=== PATIENT | male | born 1945 | race Caucasian/White ===

== ENCOUNTER 2020-06-27 18:17 | Inpatient (IN) | payer MEDICARE, OTHER ==
[~2020-06-27] VITALS: Ht 170.2 cm; Wt 80.3 kg
[~2020-06-27 18:17] MED LIST: ASPI-630 PO; METO50TA6 PO
[2020-06-27 18:44] LABS: BASO # 0.1 x10^3/uL (0.0-0.2); BASO % 1 % (0-3); EOS # 0.2 x10^3/uL (0.0-0.7); EOS % 2 % (0-3); HEMATOCRIT 41.5 % (39.0-53.0); HEMOGLOBIN 14.3 g/dL (13.0-17.5); LYMPH % 41 % (24-48); MEAN CORPUSCULAR HEMOGLOBIN 34 pg (25-35); MEAN CORPUSCULAR HGB CONC 34 g/dL (31-37); MEAN CORPUSCULAR VOLUME 99 fL (79-100); MONO # 1.4 x10^3/uL (0.0-1.1); MONO % 14 % (0-9); NEUT # 3.9 x10^3/uL (1.8-7.7); NEUT % 41 % (31-73); PLATELET COUNT 225 x10^3/uL (140-400); WHITE BLOOD COUNT 9.6 x10^3/uL (4.0-11.0)
[2020-06-27] MEDS ORDERED: NITROGLYCERIN PREMIX 250 ML IV ONE (18:45)
[2020-06-27] MEDS ORDERED: IV NORMAL SALINE 1000ML BAG 1,000 ML IV ONE (18:45)
[2020-06-27] MEDS ORDERED: MORPHINE SULFATE 4 MG/ML VIAL. IV ONE (18:45)
[2020-06-27 18:54] LABS: PROTHROMBIN TIME PATIENT 13.7 SEC (11.7-14.0)
--- NOTE | 2020-06-27 19:30 | RAD ---
EXAMINATION: CT HEAD/BRAIN WO (CT HEAD WITHOUT IV CONTRAST) CLINICAL HISTORY: Syncope, head injury TECHNIQUE: Serial axial images without IV contrast were obtained from the vertex to the foramen magnu m. CT Dose Reduction Employed: One or more of the following individualized dose reduction techniques wer e utilized for this examination: 1. Automated exposure control 2. Adjustment of the mA and/or kV ac cording to patient size 3. Use of iterative reconstruction technique. COMPARISON: None FINDINGS: Post-operative Change: None. Acute Change: No evidence of an acute infarct or other acute parenchymal process. Hemorrhage: No evidence of acute intracranial hemorrhage. Mass Lesion/Mass Effect: No evidence of intracranial mass or extraaxial fluid collection. No signific ant mass effect. Chronic Change: Scattered patchy foci of hypoattenuation in the supratentorial white matter, asymmetr ically prominent adjacent to the frontal and temporal horns of the left lateral ventricle. This is no nspecific but likely represents mild microvascular ischemia. Atherosclerotic calcification of the kerry ateral carotid siphons. Parenchyma: Mild generalized volume loss. Parenchyma otherwise within normal limits for age. Ventricles: Ventricular enlargement concordant with degree of parenchymal volume loss. Paranasal Sinuses and Skull Base: Visualized paranasal sinuses clear. Visualized skull base and soft tissues unremarkable. IMPRESSION: No evidence of acute intracranial abnormality. Mild chronic white matter microvascular ischemic changes. Electronically signed by: Javi Thakkar DO (06/27/2020 7:27 PM) [facility]
[2020-06-27 19:32] LABS: CALCIUM 8.5 mg/dL (8.5-10.1); CREATININE 1.7 mg/dL (0.7-1.3); GFR 39.6; POTASSIUM 4.4 mmol/L (3.5-5.1)
--- NOTE | 2020-06-27 19:35 | PHYS DOC ---
Past Medical History Past Medical History: Heart Disease, Hypertension Past Surgical History: Cholecystectomy, Coronary Bypass Surgery, Other Additional Past Surgical Histo: L KNEE, R ANKLE FX REPAIR 1994, BILAT CARPAL TUNNEL, MULTIPLE SKIN CA Smoking Status: Never Smoker Alcohol Use: None General Adult EDM: Chief Complaint: CHEST PAIN HPI: HPI: Patient is a 75 year [id number]-ekt male past medical history of coronary artery disease s/p cabg presents for evaluation after syncopal episode. Patient states he was at the gas station when he suddenly had a syncopal episode. Patient denies any preceding symptoms. Patient states upon awakening he had some left-sided chest discomfort. Patient pain was constant but worse with deep breaths. Patient states pain was initially a 7 out of 10. On upon arrival to a 3 out of 10. EMS treated patient with aspirin and nitroglycerin. Patient also has abrasion laceration to the left posterior scalp. EMS EKG showed ST abnormalities in V2 V3--which completely resolved on ER ekg. Review of Systems: Review of Systems: Constitutional: Denies fever or chills. [] Eyes: Denies change in visual acuity. [] HENT: Denies nasal congestion or sore throat. [] Respiratory: Denies cough positive shortness of breath. [] Cardiovascular: Positive chest pain GI: Denies abdominal pain, nausea, vomiting, bloody stools or diarrhea. [] : Denies dysuria. [] Musculoskeletal: Denies back pain or joint pain. [] Integument: Denies rash. [] Neurologic: Denies headache, focal weakness or sensory changes. [] Endocrine: Denies polyuria or polydipsia. [] Lymphatic: Denies swollen glands. [] Psychiatric: Denies depression or anxiety. [] Heart Score: HEART Score for Chest Pain: HEART Score for Chest Pain Response (Comments) Value History Highly Suspicious 2 ECG Nonspecific Repolarizatio 1 Age > 65 2 Risk Factors >3 Risk Factors or Hx CAD 2 Total 7 Risk Factors: Risk Factors: DM, Current or recent (<one month) smoker, HTN, HLP, family history of CAD, obesity. Risk Scores: Score 0 - 3: 2.5% MACE over next 6 weeks - Discharge Home Score 4 - 6: 20.3% MACE over next 6 weeks - Admit for Clinical Observation Score 7 - 10: 72.7% MACE over next 6 weeks - Early Invasive Strategies Current Medications: Current Medications Medications (Trade) Dose Ordered Sig/Guillermo Start Time Stop Time Status Last Admin Dose Admin Morphine Sulfate (Morphine Sulfate) 4 mg 1X ONCE 06/27/20 18:45 06/27/20 18:46 DC 06/27/20 19:03 4 MG Nitroglycerin/ Dextrose 250 ml @ 0 mls/hr 1X ONCE 06/27/20 18:45 06/27/20 18:46 DC 06/27/20 19:28 1.5 MLS/HR Sodium Chloride 1,000 ml @ 1,000 mls/hr 1X ONCE 06/27/20 18:45 06/27/20 19:44 06/27/20 19:13 1,000 MLS/HR Allergies: Allergies: Allergies Coded Allergies Type Severity Reaction Last Updated Verified No Known Drug Allergies 10/21/14 No Physical Exam: PE: Constitutional: Well developed, well nourished, no acute distress, non-toxic appearance. [] HENT: Normocephalic, atraumatic, bilateral external ears normal, oropharynx moist, no oral exudates, nose normal. [] Eyes: PERRLA, EOMI, conjunctiva normal, no discharge. [] Neck: Normal range of motion, no tenderness, supple, no stridor. [] Cardiovascular:Heart rate regular rhythm, no murmur [] Lungs & Thorax: Bilateral breath sounds clear to auscultation [] Abdomen: Bowel sounds normal, soft, no tenderness, no masses, no pulsatile masses. [] Skin: Warm, dry, no erythema, no rash. [] Back: No tenderness, no CVA tenderness. [] Extremities: No tenderness, no cyanosis, no clubbing, ROM intact, no edema. [] Neurologic: Alert and oriented X 3, normal motor function, normal sensory function, no focal deficits noted. [] Psychologic: Affect normal, judgement normal, mood normal. [] Current Patient Data: Labs: Laboratory Tests Test 06/27/20 18:07 06/27/20 19:10 White Blood Count 9.6 x10^3/uL (4.0-11.0) Red Blood Count 4.20 x10^6/uL (4.30-5.70) L Hemoglobin 14.3 g/dL (13.0-17.5) Hematocrit 41.5 % (39.0-53.0) Mean Corpuscular Volume 99 fL (79-100) Mean Corpuscular Hemoglobin 34 pg (25-35) Mean Corpuscular Hemoglobin Concent 34 g/dL (31-37) Red Cell Distribution Width 14.0 % (11.5-14.5) Platelet Count 225 x10^3/uL (140-400) Neutrophils (%) (Auto) 41 % (31-73) Lymphocytes (%) (Auto) 41 % (24-48) Monocytes (%) (Auto) 14 % (0-9) H Eosinophils (%) (Auto) 2 % (0-3) Basophils (%) (Auto) 1 % (0-3) Neutrophils # (Auto) 3.9 x10^3/uL (1.8-7.7) Lymphocytes # (Auto) 4.0 x10^3/uL (1.0-4.8) Monocytes # (Auto) 1.4 x10^3/uL (0.0-1.1) H Eosinophils # (Auto) 0.2 x10^3/uL (0.0-0.7) Basophils # (Auto) 0.1 x10^3/uL (0.0-0.2) Prothrombin Time 13.7 SEC (11.7-14.0) Prothrombin Time INR 1.1 (0.8-1.1) Activated Partial Thromboplast Time 28 SEC (24-38) Sodium Level 138 mmol/L (136-145) Potassium Level 4.4 mmol/L (3.5-5.1) Chloride Level 106 mmol/L (98-107) Carbon Dioxide Level 26 mmol/L (21-32) Anion Gap 6 (6-14) Blood Urea Nitrogen 27 mg/dL (8-26) H Creatinine 1.7 mg/dL (0.7-1.3) H Estimated GFR (Cockcroft-Gault) 39.6 BUN/Creatinine Ratio 16 (6-20) Glucose Level 99 mg/dL (70-99) Calcium Level 8.5 mg/dL (8.5-10.1) Total Bilirubin Pending Aspartate Amino Transferase (AST) Pending Alanine Aminotransferase (ALT) Pending Alkaline Phosphatase Pending Total Protein Pending Albumin Pending Albumin/Globulin Ratio Pending Laboratory Tests 06/27/20 18:07 Laboratory Tests 06/27/20 19:10 Vital Signs: Vital Signs Date Time Temp Pulse Resp B/P (MAP) Pulse Ox O2 Delivery O2 Flow Rate FiO2 06/27/20 18:18 98.2 64 18 145/62 (89) 98 Room Air 98.2 EKG: EKG: Heart rate 66 taken at [address] elevation no acute GA [] Radiology/Procedures: Radiology/Procedures: []FINDINGS: Post-operative Change: None. Acute Change: No evidence of an acute infarct or other acute parenchymal process. Hemorrhage: No evidence of acute intracranial hemorrhage. Mass Lesion/Mass Effect: No evidence of intracranial mass or extraaxial fluid collection. No significant mass effect. Chronic Change: Scattered patchy foci of hypoattenuation in the supratentorial white matter, asymmetrically prominent adjacent to the frontal and temporal horns of the left lateral ventricle. This is nonspecific but likely represents mild microvascular ischemia. Atherosclerotic calcification of the bilateral carotid siphons. Parenchyma: Mild generalized volume loss. Parenchyma otherwise within normal limits for age. Ventricles: Ventricular enlargement concordant with degree of parenchymal volume loss. Paranasal Sinuses and Skull Base: Visualized paranasal sinuses clear. Visualized skull base and soft tissues unremarkable. IMPRESSION: No evidence of acute intracranial abnormality. Mild chronic white matter microvascular ischemic changes. Electronically signed by: Javi Thakkar DO (06/27/2020 7:27 PM) [facility] Course & Med Decision Making: Course & Med Decision Making Pertinent Labs and Imaging studies reviewed. (See chart for details) [] Patient was evaluated for chief complaint. Work-up consisted of laboratory analysis and radiologic imaging and ekg. Results reviewed and discussed with patient Patient received aspirin prior to arrival. I decided to start patient on nitro drip for his pain. He received morphine and IV fluids. Initial troponin slightly elevated but within normal limits. Despite patients intial tropoin I suspect NSTEMI. Patient admitted to hospitalist with cardiology consult. J Luis Disclaimer: J Luis Disclaimer: This electronic medical record was generated, in whole or in part, using a voice recognition dictation system. Departure Departure Impression: Primary Impression: Chest pain Additional Impression: Syncope Disposition: 09 ADMITTED INPT THIS HOSP Admitting Physician: NIDIA Condition: STABLE Referrals: UNKNOWN PCP NAME (PCP) NOEL KING DO Jun 27, 2020 19:35
[2020-06-27 19:37] LABS: ALBUMIN 2.9 g/dL (3.4-5.0); ALBUMIN/GLOBULIN RATIO 0.7 (1.0-1.7); TOTAL BILIRUBIN 0.5 mg/dL (0.2-1.0); TOTAL PROTEIN 7.1 g/dL (6.4-8.2)
[2020-06-27 20:40] VITALS: BP 142/60
--- NOTE | 2020-06-27 20:41 | RAD ---
EXAMINATION: XR CHEST 1V CLINICAL HISTORY: Chest pain EXAM DATE/TIME: 06/27/2020 7:48 PM COMPARISON: None FINDINGS: Lines, Tubes, and Devices: None. Cardiomediastinal Silhouette: Normal heart size. Aortic atherosclerotic calcification. Lungs and Pleura: Pulmonary hypoexpansion with nonspecific mild diffuse interstitial prominence. No e vidence of focal airspace consolidation or pleural effusion. Bones and Soft Tissues: Median sternotomy wires and paramediastinal surgical clips. IMPRESSION: No evidence of acute cardiopulmonary abnormality. Electronically signed by: Javi Thakkar DO (06/27/2020 8:38 PM) [facility]
[2020-06-27] MEDS ORDERED: ONDANSETRON PF 4 MG/2 ML VIAL. IV PRN ×2 (21:00→22:30)
[2020-06-27] MEDS ORDERED: MORPHINE SULFATE 4 MG/ML VIAL. IV PRN (21:00)
[2020-06-27] MEDS ORDERED: NITROGLYCERIN SUBLINGUAL 0.4 MG BOTTLE OF 25. SL PRN (22:30)
[2020-06-27 22:50] VITALS: BP 150/66
[2020-06-27] MEDS: HEPARIN for SUB-Q USE 5,000 UNIT/ML VIAL. SQ SCH (22:54)
[2020-06-27] MEDS: METOPROLOL TART IMMED RELEASE 50 MG TABLET. PO SCH (22:56)
[2020-06-28] VITALS (8 sets, daily range): BP systolic 139–160; BP diastolic 52–69
--- NOTE | 2020-06-28 02:04 | NUR ---
Pt arrived to room 200 via bed from the ER at approx 2044, we did not allow him to ambulate at this time d/t dizzyness, and pt reports mild nausea he attributes to not eating since noon. VSS, SR with PVC's on telemetry, 3-4/10 Left chest pain pt states feels like muscular pain. 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 Pt reports no sick contacts, will continue to monitor. Addendum: 06/28/20 at 0232 by KAYCEE LAMB RN Pain is 4/10 with activity and deep breaths, 1/10 at rest.
--- NOTE | 2020-06-28 02:37 | NUR ---
Pt states he had follow up appointment with Dr. Bennett at [facility] [place] "about 2-3 weeks ago." He uses [facility] pharmacy and does not carry a list of home medications.
--- NOTE | 2020-06-28 03:12 | NUR ---
Pt tested negative for COVID 19 at [facility] "about two months ago" when he sought testing s/t chest cold.
[2020-06-28] MEDS: HEPARIN for SUB-Q USE 5,000 UNIT/ML VIAL. SQ SCH ×3 (05:51→21:45)
--- NOTE | 2020-06-28 07:17 | PDOC1 ---
History and Physical Date of Admission Date of Admission DATE: 06/28/20 TIME: 06:47 Source Source: Chart review, Patient History of Present Illness History of Present Illness Patient is a 75-year-old male with past medical history of coronary artery disease, who presents to the ER after syncopal episode while standing at the counter at a gas station yesterday. He reportedly fell backwards to the ground and suffered a head injury with superficial laceration to the posterior left scalp. He did lose consciousness and the next thing he remembers is riding the ambulance to the ED. He denies any preceding symptoms, but did report some associated chest discomfort when he regained consciousness. He rates his symptoms as a 7/10, aggravated by deep inspiration. He has reproducible chest tenderness. He received aspirin nitroglycerin in route to the ED. Upon arrival to the ED was placed on nitroglycerin drip due to continued chest pain. Initial troponin was slightly elevated, with repeat trending upwards. 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 Will admit patient for further medical management with cardiology consult. Past Medical History Past Medical History Coronary artery disease, hypertension, skin cancer Past Surgical History Past Surgical History CABG, cholecystectomy, left knee surgery, right ankle fixation, bilateral carpal tunnel Family History Family History ALS Social History Smoke: No ALCOHOL: none Drugs: None Current Problem List Problem List Problems Medical Problems: (1) Chest pain Status: Acute (2) Syncope Status: Acute Current Medications Current Medications Current Medications Morphine Sulfate (Morphine Sulfate) 4 mg 1X ONCE IV Last administered on 06/27/20at 19:03; Start 06/27/20 at 18:45; Stop 06/27/20 at 18:46; Status DC Sodium Chloride 1,000 ml @ 1,000 mls/hr 1X ONCE IV Last administered on 06/27/20at 19:13; Start 06/27/20 at 18:45; Stop 06/27/20 at 19:44; Status DC Nitroglycerin/ Dextrose 250 ml @ 0 mls/hr 1X ONCE IV Last administered on 06/27/20at 19:28; Start 06/27/20 at 18:45; Stop 06/27/20 at 22:25; Status DC Ondansetron HCl (Zofran) 4 mg PRN Q8HRS PRN IV NAUSEA/VOMITING; Start 06/27/20 at 21:00; Stop 06/27/20 at 22:25; Status DC Morphine Sulfate (Morphine Sulfate) 4 mg PRN Q2HR PRN IV PAIN; Start 06/27/20 at 21:00 Ondansetron HCl (Zofran) 4 mg PRN Q4HRS PRN IV NAUSEA/VOMITING 1ST CHOICE; Start 06/27/20 at 22:30 Nitroglycerin (Nitrostat) 0.4 mg PRN Q5MIN PRN SL CHEST PAIN; Start 06/27/20 at 22:30 Aspirin (Aspirin Chewable) 81 mg DAILY PO ; Start 06/28/20 at 09:00 Metoprolol Tartrate (Lopressor) 25 mg BID PO Last administered on 06/27/20at 22:56; Start 06/27/20 at 23:00 Heparin Sodium (Porcine) (Heparin Sodium) 5,000 unit Q8HRS SQ Last administered on 06/28/20at 05:51; Start 06/27/20 at 23:00 Active Scripts Active Reported Aspirin 81 Mg Tab.chew 1 Tab PO DAILY Metoprolol Tartrate 50 Mg Tablet 0.5 Tab PO BID Allergies Allergies: Coded Allergies: Sulfa (Sulfonamide Antibiotics) (Verified Allergy, Intermediate, Nausea, 06/27/20) ROS Review of System GENERAL: No history of weight change, weakness or fevers. SKIN: No bruising, hair changes or rashes. EYES: No blurred, double or loss of vision. NOSE AND THROAT: No history of nosebleeds, hoarseness or sore throat. HEART: Chest pain. Denies palpitations. LUNGS: Denies cough, hemoptysis, wheezing or shortness of breath. GASTROINTESTINAL: Denies nausea, vomiting, abdominal pain. GENITOURINARY: Denies dysuria, frequency, urgency, hematuria. NEUROLOGIC: Syncope. Denies history of numbness, tingling, tremor or weakness. PSYCHIATRIC: Denies anxiety, denies depression. ENDOCRINE: No history of heat or cold intolerance, polyuria or polydipsia. EXTREMITIES: Denies muscle weakness, joint pain, pain on walking or stiffness. Physical Exam Physical Exam General: Alert, Oriented X3, Cooperative, No acute distress HEENT: Abrasion laceration to the left posterior scalp. PERRLA, EOMI Lungs: Clear to auscultation, Normal air movement Heart: RRR, no murmurs Cardiovascular: S1, S2 Abdomen: Normal bowel sounds, Soft, No tenderness Extremities: No clubbing, No cyanosis Skin: No rashes, No significant lesion Neuro: Normal speech, Normal tone, Sensation intact Psych/Mental Status: Mental status NL, Mood NL Vitals Vitals Vital Signs Date Time Temp Pulse Resp B/P (MAP) Pulse Ox O2 Delivery O2 Flow Rate FiO2 06/28/20 02:45 Room Air 06/28/20 02:01 97.9 68 17 148/68 (94) 96 97.9 Labs Labs Laboratory Tests Test 06/27/20 18:07 06/27/20 19:10 06/27/20 23:05 White Blood Count 9.6 x10^3/uL (4.0-11.0) Red Blood Count 4.20 x10^6/uL (4.30-5.70) Hemoglobin 14.3 g/dL (13.0-17.5) Hematocrit 41.5 % (39.0-53.0) Mean Corpuscular Volume 99 fL (79-100) Mean Corpuscular Hemoglobin 34 pg (25-35) Mean Corpuscular Hemoglobin Concent 34 g/dL (31-37) Red Cell Distribution Width 14.0 % (11.5-14.5) Platelet Count 225 x10^3/uL (140-400) Neutrophils (%) (Auto) 41 % (31-73) Lymphocytes (%) (Auto) 41 % (24-48) Monocytes (%) (Auto) 14 % (0-9) Eosinophils (%) (Auto) 2 % (0-3) Basophils (%) (Auto) 1 % (0-3) Neutrophils # (Auto) 3.9 x10^3/uL (1.8-7.7) Lymphocytes # (Auto) 4.0 x10^3/uL (1.0-4.8) Monocytes # (Auto) 1.4 x10^3/uL (0.0-1.1) Eosinophils # (Auto) 0.2 x10^3/uL (0.0-0.7) Basophils # (Auto) 0.1 x10^3/uL (0.0-0.2) Prothrombin Time 13.7 SEC (11.7-14.0) Prothromb Time International Ratio 1.1 (0.8-1.1) Activated Partial Thromboplast Time 28 SEC (24-38) Sodium Level 138 mmol/L (136-145) Potassium Level 4.4 mmol/L (3.5-5.1) Chloride Level 106 mmol/L (98-107) Carbon Dioxide Level 26 mmol/L (21-32) Anion Gap 6 (6-14) Blood Urea Nitrogen 27 mg/dL (8-26) Creatinine 1.7 mg/dL (0.7-1.3) Estimated GFR (Cockcroft-Gault) 39.6 BUN/Creatinine Ratio 16 (6-20) Glucose Level 99 mg/dL (70-99) Calcium Level 8.5 mg/dL (8.5-10.1) Total Bilirubin 0.5 mg/dL (0.2-1.0) Aspartate Amino Transf (AST/SGOT) 27 U/L (15-37) Alanine Aminotransferase (ALT/SGPT) 19 U/L (16-63) Alkaline Phosphatase 84 U/L (46-116) Troponin I Quantitative 0.035 ng/mL (0.000-0.055) 0.064 ng/mL (0.000-0.055) Total Protein 7.1 g/dL (6.4-8.2) Albumin 2.9 g/dL (3.4-5.0) Albumin/Globulin Ratio 0.7 (1.0-1.7) Laboratory Tests Test 06/27/20 18:07 06/27/20 19:10 06/27/20 23:05 White Blood Count 9.6 x10^3/uL (4.0-11.0) Red Blood Count 4.20 x10^6/uL (4.30-5.70) Hemoglobin 14.3 g/dL (13.0-17.5) Hematocrit 41.5 % (39.0-53.0) Mean Corpuscular Volume 99 fL (79-100) Mean Corpuscular Hemoglobin 34 pg (25-35) Mean Corpuscular Hemoglobin Concent 34 g/dL (31-37) Red Cell Distribution Width 14.0 % (11.5-14.5) Platelet Count 225 x10^3/uL (140-400) Neutrophils (%) (Auto) 41 % (31-73) Lymphocytes (%) (Auto) 41 % (24-48) Monocytes (%) (Auto) 14 % (0-9) Eosinophils (%) (Auto) 2 % (0-3) Basophils (%) (Auto) 1 % (0-3) Neutrophils # (Auto) 3.9 x10^3/uL (1.8-7.7) Lymphocytes # (Auto) 4.0 x10^3/uL (1.0-4.8) Monocytes # (Auto) 1.4 x10^3/uL (0.0-1.1) Eosinophils # (Auto) 0.2 x10^3/uL (0.0-0.7) Basophils # (Auto) 0.1 x10^3/uL (0.0-0.2) Prothrombin Time 13.7 SEC (11.7-14.0) Prothromb Time International Ratio 1.1 (0.8-1.1) Activated Partial Thromboplast Time 28 SEC (24-38) Sodium Level 138 mmol/L (136-145) Potassium Level 4.4 mmol/L (3.5-5.1) Chloride Level 106 mmol/L (98-107) Carbon Dioxide Level 26 mmol/L (21-32) Anion Gap 6 (6-14) Blood Urea Nitrogen 27 mg/dL (8-26) Creatinine 1.7 mg/dL (0.7-1.3) Estimated GFR (Cockcroft-Gault) 39.6 BUN/Creatinine Ratio 16 (6-20) Glucose Level 99 mg/dL (70-99) Calcium Level 8.5 mg/dL (8.5-10.1) Total Bilirubin 0.5 mg/dL (0.2-1.0) Aspartate Amino Transf (AST/SGOT) 27 U/L (15-37) Alanine Aminotransferase (ALT/SGPT) 19 U/L (16-63) Alkaline Phosphatase 84 U/L (46-116) Troponin I Quantitative 0.035 ng/mL (0.000-0.055) 0.064 ng/mL (0.000-0.055) Total Protein 7.1 g/dL (6.4-8.2) Albumin 2.9 g/dL (3.4-5.0) Albumin/Globulin Ratio 0.7 (1.0-1.7) Images Images EXAMINATION: XR CHEST 1V CLINICAL HISTORY: Chest pain EXAM DATE/TIME: 06/27/2020 7:48 PM COMPARISON: None FINDINGS: Lines, Tubes, and Devices: None. Cardiomediastinal Silhouette: Normal heart size. Aortic atherosclerotic calcification. Lungs and Pleura: Pulmonary hypoexpansion with nonspecific mild diffuse interstitial prominence. No evidence of focal airspace consolidation or pleural effusion. Bones and Soft Tissues: Median sternotomy wires and paramediastinal surgical clips. IMPRESSION: No evidence of acute cardiopulmonary abnormality. EXAMINATION: CT HEAD/BRAIN WO (CT HEAD WITHOUT IV CONTRAST) CLINICAL HISTORY: Syncope, head injury TECHNIQUE: Serial axial images without IV contrast were obtained from the vertex to the foramen magnum. CT Dose Reduction Employed: One or more of the following individualized dose red uction techniques were utilized for this examination: 1. Automated exposure control 2. Adjustment of the mA and/or kV according to patient size 3. Use of iterative reconstruction technique. COMPARISON: None FINDINGS: Post-operative Change: None. Acute Change: No evidence of an acute infarct or other acute parenchymal process. Hemorrhage: No evidence of acute intracranial hemorrhage. Mass Lesion/Mass Effect: No evidence of intracranial mass or extraaxial fluid collection. No significant mass effect. Chronic Change: Scattered patchy foci of hypoattenuation in the supratentorial white matter, asymmetrically prominent adjacent to the frontal and temporal horns of the left lateral ventricle. This is nonspecific but likely represents mild microvascular ischemia. Atherosclerotic calcification of the bilateral carotid siphons. Parenchyma: Mild generalized volume loss. Parenchyma otherwise within normal limits for age. Ventricles: Ventricular enlargement concordant with degree of parenchymal volume loss. Paranasal Sinuses and Skull Base: Visualized paranasal sinuses clear. Visualized skull base and soft tissues unremarkable. IMPRESSION: No evidence of acute intracranial abnormality. Mild chronic white matter microvascular ischemic changes. VTE Prophylaxis Ordered VTE Prophylaxis Devices: No VTE Pharmacological Prophylaxi: Yes Assessment/Plan Assessment/Plan NSTEMI Syncope Dehydration KONRAD Vasomotor Nephropathy Malnutrition Plan: Consult to cardiology. Slightly elevated troponins, will continue to trend. Morphine, nitroglycerin as needed Zofran as needed Patient received aspirin prior to arrival in the ED; continue daily aspirin Patient has history of dizziness and syncope. He had cardiac tilt table test on 10/21/14, that was negative for cardiogenic syncope. IV normal saline FEN - Cardiac diet PPX - Heparin FULL CODE Dispo - inpatient for above Justifications for Admission Other Justification RAJESH QUEVEDO MD Jun 28, 2020 07:17
[2020-06-28 08:26] LABS: BASO # 0.1 x10^3/uL (0.0-0.2); BASO % 1 % (0-3); EOS # 0.1 x10^3/uL (0.0-0.7); EOS % 2 % (0-3); HEMATOCRIT 43.1 % (39.0-53.0); HEMOGLOBIN 14.5 g/dL (13.0-17.5); LYMPH # 2.5 x10^3/uL (1.0-4.8); LYMPH % 29 % (24-48); MEAN CORPUSCULAR HEMOGLOBIN 33 pg (25-35); MEAN CORPUSCULAR HGB CONC 34 g/dL (31-37); MEAN CORPUSCULAR VOLUME 99 fL (79-100); MONO # 1.1 x10^3/uL (0.0-1.1); MONO % 13 % (0-9); NEUT # 4.7 x10^3/uL (1.8-7.7); NEUT % 56 % (31-73); PLATELET COUNT 212 x10^3/uL (140-400); RED BLOOD COUNT 4.34 x10^6/uL (4.30-5.70); RED CELL DISTRIBUTION WIDTH 14.5 % (11.5-14.5); WHITE BLOOD COUNT 8.4 x10^3/uL (4.0-11.0)
[2020-06-28 09:00] LABS: CALCIUM 8.3 mg/dL (8.5-10.1); CREATININE 1.4 mg/dL (0.7-1.3); GFR 49.5; POTASSIUM 3.8 mmol/L (3.5-5.1)
[2020-06-28] MEDS: METOPROLOL TART IMMED RELEASE 50 MG TABLET. PO SCH ×2 (09:00→21:45)
[2020-06-28 09:05] LABS: MAGNESIUM 2.3 mg/dL (1.8-2.4)
[2020-06-28 09:14] LABS: CHOLESTEROL/HDL RATIO 5.1
--- NOTE | 2020-06-28 09:27 | PDOC2 ---
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 This occurred about 5PM yesterday. He only drank about a bottle of water yesterday and also took his metoprolol. Denies any DM. He was at the grocery store when he just passed out. Denies any presyncopal symptoms leading up to him falling likely on to his left side based on his contusion. The next thing he rembered was he was on the floor being woken up by EMS. He started having left chest sharp pain after the fall and this is reproducible with palpation without any radiating sensation. While in ED he was also a little bit nauseated but no vomiting. Denies any abdominal pain, fever chills or any intractable coughing lately. He does have GERD and takes prilosec. At this time his chest pain is still there and again reproducible with palpation but his nausea remains. No hx of PUD and no NSAID routine use. He takes ASA and metoprolol and colestid but does not take any statin. No prior stress test. He seess [place] cardiology. He had CABG in 2013 and no LHC since then. Prior to his syncope, he denies any exertion al CP, WILLIAM and no palpitations. Although in the last 2 months he had 2 episodes when he almost passed out. He did have syncopal episode in the past and had a negative tilt table. PAST MEDICAL HISTORY Cardiovascular: CAD, HTN, Syncope, Hyperlipidemia, Other (carotid artery disease?) CENTRAL NERVOUS SYSTEM: Carpal Tunnel Syndrome GI: GERD, Other (chronic diarrhea) Heme/Onc: No pertinent hx Hepatobiliary: No pertinent hx, Cholelithiasis Psych: No pertinent hx Musculoskeletal: Osteoarthritis Renal/: No pertinent hx PAST SURGICAL HISTORY Past Surgical History: Arthroscopy (left knee and ankle), Cholecystectomy, CABG (2013 at [facility]), Other (CTS release) FAMILY HISTORY Family History: Heart Disease SOCIAL HISTORY Smoke: Quit (8 pk yr) ALCOHOL: none Drugs: None Lives: Alone CURRENT MEDICATIONS CURRENT MEDICATIONS Current Medications Medications (Trade) Dose Ordered Sig/Guillermo Route PRN Reason Start Time Stop Time Status Last Admin Dose Admin Morphine Sulfate (Morphine Sulfate) 4 mg 1X ONCE IV 06/27/20 18:45 06/27/20 18:46 DC 06/27/20 19:03 Sodium Chloride 1,000 ml @ 1,000 mls/hr 1X ONCE IV 06/27/20 18:45 06/27/20 19:44 DC 06/27/20 19:13 Nitroglycerin/ Dextrose 250 ml @ 0 mls/hr 1X ONCE IV 06/27/20 18:45 06/27/20 22:25 DC 06/27/20 19:28 Metoprolol Tartrate (Lopressor) 25 mg BID PO 06/27/20 23:00 06/27/20 22:56 Heparin Sodium (Porcine) (Heparin Sodium) 5,000 unit Q8HRS SQ 06/27/20 23:00 06/28/20 05:51 ALLERGIES ALLERGIES: Coded Allergies: Sulfa (Sulfonamide Antibiotics) (Verified Allergy, Intermediate, Nausea, 06/27/20) ROS Review of System 14 point ROS evaluated with pertinent positives noted per HPI PHYSICAL EXAM General: Alert, Oriented X3, Cooperative, No acute distress HEENT: Atraumatic, Mucous membr. moist/pink Lungs: Clear to auscultation, Normal air movement Heart: Regular rate (SR), Normal S1, Normal S2, No murmurs Abdomen: Soft, No tenderness Extremities: No cyanosis, No edema Skin: No breakdown, No significant lesion Neuro: Normal speech, Sensation intact Psych/Mental Status: Mental status NL, Mood NL MUSCULOSKELETAL: Osteoarthritic changes both hands VITALS/I&O VITALS/I&O: Vital Signs Date Time Temp Pulse Resp B/P (MAP) Pulse Ox O2 Delivery O2 Flow Rate FiO2 06/28/20 08:00 Room Air 06/28/20 07:00 97.5 65 18 142/66 (91) 96 97.5 I & O 06/27/20 06/27/20 06/28/20 15:00 23:00 07:00 Intake Total 50 ml 200 ml Output Total 250 ml Balance 50 ml -50 ml LABS Lab: Laboratory Tests Test 06/27/20 18:07 06/27/20 19:10 06/27/20 23:05 06/28/20 05:34 White Blood Count 9.6 x10^3/uL (4.0-11.0) 8.4 x10^3/uL (4.0-11.0) Red Blood Count 4.20 x10^6/uL (4.30-5.70) L 4.34 x10^6/uL (4.30-5.70) Hemoglobin 14.3 g/dL (13.0-17.5) 14.5 g/dL (13.0-17.5) Hematocrit 41.5 % (39.0-53.0) 43.1 % (39.0-53.0) Mean Corpuscular Volume 99 fL (79-100) 99 fL (79-100) Mean Corpuscular Hemoglobin 34 pg (25-35) 33 pg (25-35) Mean Corpuscular Hemoglobin Concent 34 g/dL (31-37) 34 g/dL (31-37) Red Cell Distribution Width 14.0 % (11.5-14.5) 14.5 % (11.5-14.5) Platelet Count 225 x10^3/uL (140-400) 212 x10^3/uL (140-400) Neutrophils (%) (Auto) 41 % (31-73) 56 % (31-73) Lymphocytes (%) (Auto) 41 % (24-48) 29 % (24-48) Monocytes (%) (Auto) 14 % (0-9) H 13 % (0-9) H Eosinophils (%) (Auto) 2 % (0-3) 2 % (0-3) Basophils (%) (Auto) 1 % (0-3) 1 % (0-3) Neutrophils # (Auto) 3.9 x10^3/uL (1.8-7.7) 4.7 x10^3/uL (1.8-7.7) Lymphocytes # (Auto) 4.0 x10^3/uL (1.0-4.8) 2.5 x10^3/uL (1.0-4.8) Monocytes # (Auto) 1.4 x10^3/uL (0.0-1.1) H 1.1 x10^3/uL (0.0-1.1) Eosinophils # (Auto) 0.2 x10^3/uL (0.0-0.7) 0.1 x10^3/uL (0.0-0.7) Basophils # (Auto) 0.1 x10^3/uL (0.0-0.2) 0.1 x10^3/uL (0.0-0.2) Prothrombin Time 13.7 SEC (11.7-14.0) Prothrombin Time INR 1.1 (0.8-1.1) Activated Partial Thromboplast Time 28 SEC (24-38) Sodium Level 138 mmol/L (136-145) Potassium Level 4.4 mmol/L (3.5-5.1) Chloride Level 106 mmol/L (98-107) Carbon Dioxide Level 26 mmol/L (21-32) Anion Gap 6 (6-14) Blood Urea Nitrogen 27 mg/dL (8-26) H Creatinine 1.7 mg/dL (0.7-1.3) H Estimated GFR (Cockcroft-Gault) 39.6 BUN/Creatinine Ratio 16 (6-20) Glucose Level 99 mg/dL (70-99) Calcium Level 8.5 mg/dL (8.5-10.1) Total Bilirubin 0.5 mg/dL (0.2-1.0) Aspartate Amino Transferase (AST) 27 U/L (15-37) Alanine Aminotransferase (ALT) 19 U/L (16-63) Alkaline Phosphatase 84 U/L (46-116) Troponin I Quantitative 0.035 ng/mL (0.000-0.055) 0.064 ng/mL (0.000-0.055) Total Protein 7.1 g/dL (6.4-8.2) Albumin 2.9 g/dL (3.4-5.0) L Albumin/Globulin Ratio 0.7 (1.0-1.7) L Laboratory Tests 06/27/20 18:07 06/28/20 05:34 Laboratory Tests 06/27/20 19:10 ASSESSMENT/PLAN ASSESSMENT/PLAN 1. Syncope with fall with contusions 2. Atypical chest pain: reproducible with palpation, possibly MSK 3. CAD: CABG 2013 4. HTN: controlled 5. HLP 6. KONRAD: likely from dehydration, Cr better after IVF 7. Mild trop elevation: no acute EKG changes, peaked at 0.06 8. Persistent nausea Recommendations 1. Negative for orthostasis. Although volume depletion and BP med use may have contributed to his syncope, not having any presyncopal symptoms, worrisome for significant arrhythmia. In addition he remains to have some nausea but could v steve well be atypical symptoms for ischemic issues. Mild trop elevation possibly demand mediated but given his risk factors, oscar consider at least MPI unless significant changes to TTE. Will discuss with primary upward bound director 2. Will obtain CABG report from [place] 3. Will check lipids and start on statin. Will check noncontrast CT and note any occult rib fractures that could contribute to his pain. 4. Continue metoprolol, no arrhythmias so far. [facility] as an outpt and this could be arrange with [place] cardiology if pt preferes it. 5. ASA 6. TTE and obtain carotid doppler LISA JORDAN MD 06/29/20 1112: CARDIAC CONSULT ASSESSMENT/PLAN ASSESSMENT/PLAN Late entry for 06/28/20 Pt. seen and examined. Agree with above YARN REWINDER note. Patient had true syncope. No clear structural heart disease by exam, BP stable. ?hypotension versus arrhythmia. Needs loop recorder. Thanks CRISTINA ANDERSON APRN Jun 28, 2020 09:27 LISA JORDAN MD Jun 29, 2020 11:12
[2020-06-28] MEDS ORDERED: COLE1TAB2 PO (11:05)
[2020-06-28] MEDS ORDERED: DIPH25TA24 PO (11:05)
--- NOTE | 2020-06-28 11:08 | EKG ---
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
--- NOTE | 2020-06-28 12:21 | NUR ---
SS following for discharge planning. SS reviewed pt chart and discussed with pt RN. Pt is from home and is currently on room air. Cardiology following. SS will continue to follow for discharge planning.
--- NOTE | 2020-06-28 13:27 | RAD ---
EXAM: Chest CT without intravenous contrast. HISTORY: Chest pain. TECHNIQUE: Computed tomographic images of the chest were obtained without contrast. Multiplanar refor matting was performed. *One or more of the following individualized dose reduction techniques were utilized for this examina tion: 1. Automated exposure control. 2. Adjustment of the mA and/or kV according to patient size. 3. Use of iterative reconstruction technique. COMPARISON: None. FINDINGS: There is mild apical predominant emphysema with subpleural bleb formation. There are chroni c interstitial changes. There is pleural posterior dependent and basilar atelectasis. There is no sig nificant pleural effusion. There is no pneumothorax. There is no suspicious pulmonary nodule. There is evidence of prior median sternotomy and coronary artery bypass grafting. The heart is normal in size. The aorta is normal in caliber. There is no lymphadenopathy. There is a small hiatal hernia . No focal hepatic lesion is seen. The gallbladder surgically absent. There are splenic granulomas. The re is no hydronephrosis. There are small fat-containing subxiphoid hernia is an there are fat-contain ing superior ventral abdominal wall hernias to the right and left of midline measuring approximately 4.1 cm and 3.4 cm. These are partially included on the mxjzw-js-ruta. There is no suspicious osseous lesion. IMPRESSION: 1. No acute thoracic finding. There is minimal emphysema and there are chronic interstitial changes w ith superimposed atelectasis. 2. Small hiatal hernia. 3. Fat-containing subxiphoid and supraumbilical hernias, the latter which are partially included on t he rmias-ic-idfn. 4. Median sternotomy changes. Electronically signed by: Kelly Elizabeth MD (06/28/2020 1:25 PM) [id number]
[2020-06-28] MEDS ORDERED: PANTOPRAZOLE 40 MG TABLET.DR. PO ONE (14:30)
[2020-06-28] MEDS: ASPIRIN CHEWABLE 81 MG TABLET. PO SCH (16:49)
--- NOTE | 2020-06-28 17:27 | EKG ---
[facility] [address] [place] [address] Test Date: 2020-06-27 Test Time: 18:33:07 Pat Name: GERARD HERMAN Department: Room: Gender: M Egg Caser: : 1945 Requested By: NOEL KING Order Number: [id number] Reading MD: Measurements Intervals [place] Rate: 66 P: 0 [place]: 192 QRS: 39 QRSD: 86 T: 52 QT: 382 QTc: 402 Interpretive Statements SINUS RHYTHM LEFT ATRIAL ABNORMALITY QRS(T) CONTOUR ABNORMALITY CONSIDER ANTEROSEPTAL MYOCARDIAL DAMAGE ABNORMAL ECG RI6.01 No previous ECG available for comparison
[2020-06-28] MEDS ORDERED: MIRTAZAPINE 15 MG TABLET PO SCH (17:45)
--- NOTE | 2020-06-28 17:45 | CARD ---
MR#: [id number] Date of Study: 06/28/2020 Ordering Physician: CRISTINA ANDERSON, Referring Physician: CRISTINA ANDERSON Tech: Cammy Titus [facility] APPROVED REPORT EXAM: Two-dimensional and M-mode echocardiogram with Doppler and color Doppler. Other Information Quality : Good INDICATION Chest Pain 2D DIMENSIONS RVDd2.6 (2.9-3.5cm)Left Atrium(2D)4.2 (1.6-4.0cm) IVSd1.1 (0.7-1.1cm)Aortic Root(2D)2.9 (2.0-3.7cm) LVDd3.9 (3.9-5.9cm)LVOT Diameter1.9 (1.8-2.4cm) PWd1.1 (0.7-1.1cm)LVDs2.3 (2.5-4.0cm) FS (%) 30.0 %SV49.0 ml LVEF(%)60.0 (>50%) Aortic Valve AoV Peak Bill.128.7cm/sAoV VTI25.5cm AO Peak GR.6.6mmHgLVOT Peak Bill.94.1cm/s AO Mean GR.3mmHgAVA (VMAX)1.97cm2 JENNIFER (VTI)2.40cm2 Mitral Valve MV E Asuqbkmt425.3cm/sMV DECEL VBFX695dd MV A Lrwctzku717.3cm/sE/A Ratio1.4 Tricuspid Valve TR P. Wdokhivu807hw/sRAP KUTPJFRC4jeLg TR Peak Gr.04ahXuULOJ08miJs Pulmonary Vein S1 Sjzuuznd36.0cm/sD2 Svsycrpg75.5cm/s LEFT VENTRICLE The left ventricle is normal size. There is normal left ventricular wall thickness. The left ventricu lar systolic function is normal and the ejection fraction is within normal range. The Ejection Fracti on is 55-60%. There is normal LV segmental wall motion. Transmitral Doppler flow pattern is Grade I-a bnormal relaxation pattern. RIGHT VENTRICLE The right ventricle is normal size. There is normal right ventricular wall thickness. The right ventr icular systolic function is normal. ATRIA The left atrium is mildly dilated. The right atrium size is normal. The interatrial septum is intact with no evidence for an atrial septal defect or patent foramen ovale as noted on 2-D or Doppler imagi ng. AORTIC VALVE The aortic valve is calcified but opens well. Doppler and Color Flow revealed no significant aortic r egurgitation. There is no significant aortic valvular stenosis. MITRAL VALVE The mitral valve is calcified but opens well. Mitral annular calcification is mild. There is no evide nce of mitral valve prolapse but the anterior mitral valve leaflet is redundant. There is no mitral v alve stenosis. Doppler and Color-flow revealed mild mitral regurgitation. TRICUSPID VALVE The tricuspid valve is normal in structure and function. Doppler and Color Flow revealed trace to mil d tricuspid regurgitation. The PA pressure was estimated at 38 mmHg. There is no tricuspid valve sten osis. PULMONIC VALVE The pulmonic valve is not well visualized. Doppler and Color Flow revealed trace pulmonic valvular re gurgitation. There is no pulmonic valvular stenosis. GREAT VESSELS The aortic root is normal in size. The ascending aorta is not well seen. The IVC is normal in size an d collapses >50% with inspiration. PERICARDIAL EFFUSION There is no evidence of significant pericardial effusion. Critical Notification Critical Value: No <Conclusion> The left ventricle is normal size. The left ventricular systolic function is normal and the ejection fraction is within normal range. The Ejection Fraction is 55-60%. There is normal LV segmental wall motion. Doppler and Color Flow revealed no significant aortic regurgitation. There is no significant aortic valvular stenosis. Doppler and Color-flow revealed mild mitral regurgitation. Doppler and Color Flow revealed trace to mild tricuspid regurgitation. The PA pressure was estimated at 38 mmHg. Signed by : Anival Gonzalez MD Electronically Approved : 06/28/2020 17:45:07
[2020-06-28] MEDS ORDERED: ATORVASTATIN CALCIUM 40 MG TABLET. PO SCH (21:00)
[2020-06-28] MEDS ORDERED: MIRTAZAPINE 15 MG TABLET PO PRN (22:00)
[2020-06-29 03:20] VITALS: BP 164/82
[2020-06-29] MEDS: HEPARIN for SUB-Q USE 5,000 UNIT/ML VIAL. SQ SCH ×2 (06:09→14:00)
[2020-06-29 07:00] VITALS: BP 151/68
[2020-06-29] MEDS ORDERED: PANTOPRAZOLE 40 MG TABLET.DR. PO SCH (07:30)
[2020-06-29] MEDS ORDERED: REGADENOSON 0.4 MG/5 ML DISP.SYRIN. IV ONE (08:45)
[2020-06-29] MEDS: ASPIRIN CHEWABLE 81 MG TABLET. PO SCH (10:24)
[2020-06-29] MEDS: METOPROLOL TART IMMED RELEASE 50 MG TABLET. PO SCH (10:25)
--- NOTE | 2020-06-29 10:48 | RAD ---
MR#: [id number] Date of Study: 06/28/2020 Ordering Physician: CRISTINA ANDERSON, Referring Physician: CRISTINA ANDERSON, Tech: Scott Ross MBA, RDMS, RVT, RDCS, RTR APPROVED REPORT Patient Location: IN-PATIENT Laterality:Bilateral Indications Syncope Doppler Spectral Velocity Analysis Right Left pCCA 88/10 cm/spCCA 130/16 cm/s mCCA 90/12 cm/smCCA 106/19 cm/s dCCA 80/15 cm/sdCCA 122/16 cm/s Bulb 54/13 cm/sBulb 47/ cm/s ECA 144/ cm/sECA 136/ cm/s pICA 98/24 cm/spICA 96/20 cm/s Jace 122/34 cm/smICA 97/25 cm/s dICA 107/24 cm/sdICA 84/16 cm/s Vert. 52/ cm/sVert. 47/ cm/s Subcl. 117/ cm/sSubcl. 181/ cm/s ICA/CCA 1.36ICA/CCA 0.75 Findings Grayscale images demonstrate moderate intimal hyperplasia and moderate diffuse plaque at the level of the carotid bifurcations. The bilateral internal carotid arteries demonstrate 0 to less than 50% stenosis based on velocity cri teria in grayscale images. Bilateral vertebral velocities are antegrade. No significant bilateral subclavian disease is noted. Normal ICA to CCA ratios bilaterally. Critical Notification Critical Value: No <Conclusion> 1. No significant carotid occlusive disease bilateral Signed by : Partha Hernandez, Electronically Approved : 06/29/2020 10:47:51
[2020-06-29 11:00] VITALS: BP 153/66
--- NOTE | 2020-06-29 11:19 | PDOC ---
ECTORTESFAYEKashCRISTINA Giordano BOTTOM LIQUOR ATTENDANT 06/29/20 1119: CARDIO Progress Notes Date and Time Date of Service 06/29/2020 Time of Evaluation 1050 Subjective Subjective: No Chest Pain, No shortness of breath, No Palpitations, Other (nausea is better) Vitals Vitals Vital Signs Date Time Temp Pulse Resp B/P (MAP) Pulse Ox O2 Delivery O2 Flow Rate FiO2 06/29/20 10:25 86 151/68 06/29/20 07:00 97.9 19 95 Room Air 97.9 Weight Weight [ ] Input and Output Intake and Output Intake and Output 06/29/20 07:00 Intake Total 1140 ml Balance 1140 ml Intake Oral 1140 ml # Voids 6 Physical Exam HEENT: Neck Supple W Full Motion Chest: Symmetric LUNGS: Clear to Auscultation Heart: S1S2, RRR (SR) Abdomen: Soft N/T Extremities: No Calf Tenderness Neurology: alert, oriented, follow commands Assessment Assessment 1. Syncope with fall with contusions. carotid doppler with no significant disease. Could not rule out arrhythmmias 2. Atypical chest pain: reproducible with palpation, possibly MSK. no rib fractures based on CT 3. CAD: CABG 2013. EF and WM nml 4. HTN: controlled 5. HLP 6. KONRAD: likely from dehydration, Cr better after IVF 7. Mild trop elevation: no acute EKG changes, peaked at 0.06 8. Nausea: better possibly from GERD with hiatal hernia 9. PSVT: brief rare episodes Recommendations 1. Negative for orthostasis. Syncope concerning for arrhythmias. Given his several episode of presyncope and syncope in the last [address] ILR. Discussed risks and benefits with pt and agreeable to proceed 2. Will obtain CABG report from [place], will review if available 3. Continue ASA, statin, metoprolol 4. MPI today 5. Follow up with [facility] cardiology. May DC later this PM pending MPI Justicifation of Admission Dx: Justifications for Admission: Justification of Admission Dx: Yes LISA JORDAN MD 06/30/20 0651: CARDIO Progress Notes Plan Plan Late entry for 06/29/20 Pt, seen and examined. Agree with above ACCOUNTS PAYABLE SUPERVISOR note. supportive care. MPI normal, loop implant placed. CRISTINA ANDERSON BOTTOM LIQUOR ATTENDANT Jun 29, 2020 11:19 LISA JORDAN MD Jun 30, 2020 06:51
[2020-06-29] MEDS ORDERED: LIDOCAINE 2%/EPI 1:100,000 20 ML VIAL. ONE (12:31)
--- NOTE | 2020-06-29 13:02 | RAD ---
MR#: [id number] Date of Study: 06/29/2020 Ordering Physician: CRISTINA ANDERSON, Referring Physician: COBY JESUS Tech: RT Jose (R) (N) APPROVED REPORT Test Type: Pharmacological Stress Nurse/Tech: MATT NICHOLS Test Indications: CHEST PAIN, SYNCOPE Cardiac History: CABG- SEE EMR Medications: SEE EMR Medical History: SEE EMR Resting ECG: SR W/PVC Resting Heart Rate: 83 bpm Resting Blood Pressure: 139/64mmHg Pretest Chest Pain: No chest pain Nurse/Tech Notes S1,S2, LUNGS CTA, DENIED SOA OR CHEST PAIN. ONLY COMPLAINT WAS LEFT CHEST TENDERNESS FROM WHEN HE PAS SED OUT. Consent: The procedure was explained to the patient in lay terms. Informed consent was witnessed. Delon eout was entered into official.fm. History and Stress Test performed by RT Tamiko (R) (N) Pharm. Details Pharmacologic stress testing was performed using 0.4mg per 5ml of regadenoson given intravenously ove r 7-10 seconds. Stress Symptoms PT BEGAN DRY HEAVING AND ENDED UP HAVING A SMALL AMOUNT OF BILE COLORED EMESIS. EKG DIFFICULT TO READ AT TIMES, DUE TO MOVEMENT. PT ALSO C/O A HEADACHE. SYMPTOMS RESOLVED AFTER A COUPLE MINUTES. POST EXERCISE Reason for Termination: Infusion complete Max HR: 139 bpm Max Blood Pressure: 178/84mmHg Blood Pressure response to exercise: Normal blood pressure response during stress. Heart Rate response to exercise: WNL Chest Pain: No. Arrhythmia: . NO SIGNIFICANT CHANGE FROM BASELINE INTERPRETATION Stress EKG Conclusion: The resting EKG shows a sinus rhythm with mild nonspecific ST segment changes. The stress EKG shows mild nonspecific ST segment changes that are not diagnostic of ischemia. No EKG evidence of stress-induced ischemia. Imaging Protocol IMAGE PROTOCOL: Rest Tc-99m/stress Tc-99m 1 day Rest: Stress: Viability: Radiopharm.Tc99m HkxhayjxrOk92s Sestamibi Birs31oDi 33mCi Duration 15min. 10min. Img Date 06/29/2020 06/29/2020 Inj-Img Zckp97lpf. 60min. Rest Admin Site:IV - Left AntecubitalAdministrator:Bo Fuentes, RT (R)(N) Stress Admin Site: IV - Left AntecubitalAdministrator: Bo Gina, RT (R)(N) STRESS DATA End Diast. Vol.80.0mlAv. Heart Rate86.0bpm End Syst. Vol.19.0mlCO Index BSA0.0L/min Myocardial Zbmc656.0gEject. Rezkgowb13.0% Stress Rates Pk. Fill Rate3.65EDV/secLVtime Pk. Fill 194.76msec Pk. Empty Rate4.30ESV/secLVtime Pk. Rpctq441.62msec /3 Pk. Fill1.00EDV/sec Stress Scores Regional WT1.00Summed WT13.00 Regional WM0.00Summed WM1.00 LV Perfusion The stress scans show an moderate inferior lateral wall defect. The rest images show a smaller defect in the inferior lateral wall. 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 Nuclear imaging shows no other areas of abnormality. Wall Motion Left ventricular systolic function is normal with an ejection fraction of greater than 70%. LV Perf. Quant 17 Seg. SSS7.00 17 Seg. SRS4.00 17 Seg. SDS3.00 Stress Defect Extent (% LAD)0.00Rest Defect Extent (% LAD)0.00Rev. Defect Extent (% LAD)0.00 Stress Defect Extent (% LCX) 68.80Rest Defect Extent (% LCX)46.30Rev. Defect Extent (% LCX)41.30 Stress Defect Extent (% RCA)0.00Rest Defect Extent (% RCA)0.00Rev. Defect Extent (% RCA)0.00 Stress Defect Extent (% TI)15.90Rest Defect Extent (% TI)8.90Rev. Defect Extent (% TI)10.20 Conclusion 1. No EKG evidence of stress-induced ischemia. 2. 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 3. Nuclear imaging shows no other areas of abnormality. 4. Left ventricular systolic function is normal with an ejection fraction of greater than 70%. 5. Moderate risk Lexiscan nuclear stress test. Signed by : Anival Gonzalez MD Electronically Approved : 06/29/2020 13:02:02
[2020-06-29] MEDS ORDERED: LIDOCAINE 2%/EPI 1:100,000 20 ML VIAL. INJ ONE (13:30)
--- NOTE | 2020-06-29 13:56 | NUR ---
SS following up with discharge planning. SS reviewed pt chart and discussed with pt RN. Pt is currently on room air. Pt had stress test today and had loop recorder placed. Discharge to home when medically ready. SS will continue to follow for discharge planning.
--- NOTE | 2020-06-29 14:26 | PDOC ---
[employer] PROGRESS NOTE Date of Service DOS: DATE: 06/29/20 TIME: 14:23 Chief Complaint Chief Complaint Assessment/Plan NSTEMI Syncope Dehydration KONRAD Vasomotor Nephropathy Malnutrition Plan: Consult to cardiology. Slightly elevated troponins, will continue to trend. Morphine, nitroglycerin as needed Zofran as needed Patient received aspirin prior to arrival in the ED; continue daily aspirin Patient has history of dizziness and syncope. He had cardiac tilt table test on 10/21/14, that was negative for cardiogenic syncope. IV normal saline FEN - Cardiac diet PPX - Heparin FULL CODE History of Present Illness History of Present Illness Patient is a 75-year-old male with past medical history of coronary artery disease, who presents to the ER after syncopal episode while standing at the counter at a gas station yesterday. He reportedly fell backwards to the ground and suffered a head injury with superficial laceration to the posterior left scalp. He did lose consciousness and the next thing he remembers is riding the ambulance to the ED. He denies any preceding symptoms, but did report some associated chest discomfort when he regained consciousness. He rates his symptoms as a 7/10, aggravated by deep inspiration. He has reproducible chest tenderness. He received aspirin nitroglycerin in route to the ED. Upon arrival to the ED was placed on nitroglycerin drip due to continued chest pain. Initial troponin was slightly elevated, with repeat trending upwards. 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 Will admit patient for further medical management with cardiology consult. 06/29: Patient seen and examined at bedside. He had moderate risk Lexiscan nuclear stress test, with no EKG evidence of stress-induced ischemia. Patient states he feels well today. He was evaluated by cardiology and was cleared for discharge. Patient denies chest pain, shortness of breath, nausea, or vomiting. Greater than 30 minutes spent managing the discharge this patient. Vitals/I&O Vitals/I&O: Vital Signs Date Time Temp Pulse Resp B/P (MAP) Pulse Ox O2 Delivery O2 Flow Rate FiO2 06/29/20 11:00 97.9 103 19 153/66 (95) 96 Room Air 97.9 I & O 06/28/20 06/28/20 06/29/20 15:00 23:00 07:00 Intake Total 360 ml 480 ml 300 ml Balance 360 ml 480 ml 300 ml Physical Exam General: Alert, Oriented X3, Cooperative, No acute distress Heart: Regular rate (SR), Normal S1, Normal S2, No murmurs Abdomen: Soft, No tenderness Extremities: No cyanosis, No edema Skin: No breakdown, No significant lesion Labs Labs: Laboratory Tests Test 06/29/20 12:30 SARS-CoV-2 Antigen (Rapid) Negative (NEGATIVE) Assessment and Plan Assessmemt and Plan Problems Medical Problems: (1) Chest pain Status: Acute (2) Syncope Status: Acute Comment Review of Relevant I have reviewed the following items kane (where applicable) has been applied. Medications: Current Medications Medications (Trade) Dose Ordered Sig/Guillermo Route PRN Reason Start Time Stop Time Status Last Admin Dose Admin Atorvastatin Calcium (Lipitor) 40 mg QHS PO 06/28/20 21:00 06/28/20 21:45 Pantoprazole Sodium (Protonix) 40 mg DAILYAC PO 06/29/20 07:30 06/29/20 10:24 Pantoprazole Sodium (Protonix) 40 mg 1X ONCE PO 06/28/20 14:30 06/28/20 14:31 DC 06/28/20 16:49 Mirtazapine (Remeron) 15 mg PRN QHS PRN PO DEPRESSION 06/28/20 22:00 06/28/20 21:53 Regadenoson (Lexiscan) 0.4 mg 1X ONCE IV 06/29/20 08:45 06/29/20 08:46 DC 06/29/20 08:45 Lidocaine/ Epinephrine (LIDOCAINE 2%-EPI 1:100,000 multi-dose) 20 ml 1X ONCE INJ 06/29/20 13:30 06/29/20 13:32 DC 06/29/20 13:33 Justifications for Admission Other Justification RAJESH QUEVEDO MD Jun 29, 2020 14:26
[2020-06-29] MEDS ORDERED: ATOR40TA59 PO (14:31)
--- NOTE | 2020-06-29 14:35 | PDOC3 ---
Discharge Summary Visit Information Date of Admission: Jun 28, 2020 Date of Discharge: Jun 29, 2020 Final Diagnosis Problems Medical Problems: (1) Chest pain Status: Acute (2) Syncope Status: Acute Brief Hospital Course Allergies Allergies Coded Allergies Type Severity Reaction Last Updated Verified Sulfa (Sulfonamide Antibiotics) Allergy Intermediate Nausea 06/27/20 Yes Vital Signs Vital Signs Date Time Temp Pulse Resp B/P (MAP) Pulse Ox O2 Delivery O2 Flow Rate FiO2 06/29/20 11:00 97.9 103 19 153/66 (95) 96 Room Air 97.9 Lab Results Laboratory Tests Test 06/27/20 18:07 06/27/20 19:10 06/27/20 23:05 06/28/20 05:34 White Blood Count 9.6 x10^3/uL (4.0-11.0) 8.4 x10^3/uL (4.0-11.0) Red Blood Count 4.20 x10^6/uL (4.30-5.70) 4.34 x10^6/uL (4.30-5.70) Hemoglobin 14.3 g/dL (13.0-17.5) 14.5 g/dL (13.0-17.5) Hematocrit 41.5 % (39.0-53.0) 43.1 % (39.0-53.0) Mean Corpuscular Volume 99 fL (79-100) 99 fL (79-100) Mean Corpuscular Hemoglobin 34 pg (25-35) 33 pg (25-35) Mean Corpuscular Hemoglobin Concent 34 g/dL (31-37) 34 g/dL (31-37) Red Cell Distribution Width 14.0 % (11.5-14.5) 14.5 % (11.5-14.5) Platelet Count 225 x10^3/uL (140-400) 212 x10^3/uL (140-400) Neutrophils (%) (Auto) 41 % (31-73) 56 % (31-73) Lymphocytes (%) (Auto) 41 % (24-48) 29 % (24-48) Monocytes (%) (Auto) 14 % (0-9) 13 % (0-9) Eosinophils (%) (Auto) 2 % (0-3) 2 % (0-3) Basophils (%) (Auto) 1 % (0-3) 1 % (0-3) Neutrophils # (Auto) 3.9 x10^3/uL (1.8-7.7) 4.7 x10^3/uL (1.8-7.7) Lymphocytes # (Auto) 4.0 x10^3/uL (1.0-4.8) 2.5 x10^3/uL (1.0-4.8) Monocytes # (Auto) 1.4 x10^3/uL (0.0-1.1) 1.1 x10^3/uL (0.0-1.1) Eosinophils # (Auto) 0.2 x10^3/uL (0.0-0.7) 0.1 x10^3/uL (0.0-0.7) Basophils # (Auto) 0.1 x10^3/uL (0.0-0.2) 0.1 x10^3/uL (0.0-0.2) Prothrombin Time 13.7 SEC (11.7-14.0) Prothromb Time International Ratio 1.1 (0.8-1.1) Activated Partial Thromboplast Time 28 SEC (24-38) Sodium Level 138 mmol/L (136-145) 140 mmol/L (136-145) Potassium Level 4.4 mmol/L (3.5-5.1) 3.8 mmol/L (3.5-5.1) Chloride Level 106 mmol/L (98-107) 107 mmol/L (98-107) Carbon Dioxide Level 26 mmol/L (21-32) 25 mmol/L (21-32) Anion Gap 6 (6-14) 8 (6-14) Blood Urea Nitrogen 27 mg/dL (8-26) 23 mg/dL (8-26) Creatinine 1.7 mg/dL (0.7-1.3) 1.4 mg/dL (0.7-1.3) Estimated GFR (Cockcroft-Gault) 39.6 49.5 BUN/Creatinine Ratio 16 (6-20) Glucose Level 99 mg/dL (70-99) 92 mg/dL (70-99) Calcium Level 8.5 mg/dL (8.5-10.1) 8.3 mg/dL (8.5-10.1) Total Bilirubin 0.5 mg/dL (0.2-1.0) Aspartate Amino Transf (AST/SGOT) 27 U/L (15-37) Alanine Aminotransferase (ALT/SGPT) 19 U/L (16-63) Alkaline Phosphatase 84 U/L (46-116) Troponin I Quantitative 0.035 ng/mL (0.000-0.055) 0.064 ng/mL (0.000-0.055) 0.035 ng/mL (0.000-0.055) Total Protein 7.1 g/dL (6.4-8.2) Albumin 2.9 g/dL (3.4-5.0) Albumin/Globulin Ratio 0.7 (1.0-1.7) Magnesium Level 2.3 mg/dL (1.8-2.4) Creatine Kinase 167 U/L (39-308) Triglycerides Level 146 mg/dL (0-150) Cholesterol Level 197 mg/dL (0-200) LDL Cholesterol, Calculated 129 mg/dL (0-100) VLDL Cholesterol, Calculated 29 mg/dL (0-40) Non-HDL Cholesterol Calculated 158 mg/dL (0-129) HDL Cholesterol 39 mg/dL (40-60) Cholesterol/HDL Ratio 5.1 Thyroid Stimulating Hormone (TSH) 3.728 uIU/mL (0.358-3.74) Test 06/29/20 12:30 SARS-CoV-2 Antigen (Rapid) Negative (NEGATIVE) Laboratory Tests Test 06/29/20 12:30 SARS-CoV-2 Antigen (Rapid) Negative (NEGATIVE) Brief Hospital Course Mr. Hernandez is a 75 old male who presented with syncope, chest pain. Consultations placed to cardiology. He had echocardiogram showing normal left ventricular size, normal left ventricular function and ejection fraction, normal left ventricular segmental wall motion. He had a nuclear med stress test showin. No EKG evidence of stress-induced ischemia. 2. 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 3. Nuclear imaging shows no other areas of abnormality. 4. Left ventricular systolic function is normal with an ejection fraction of greater than 70%. 5. Moderate risk Lexiscan nuclear stress test. Patient was stable for discharge home with outpatient cardiology follow-up. Discharge Information Condition at Discharge: Stable Follow Up: Weeks Disposition/Orders: D/C to Home Scheduled Aspirin (Aspirin) 81 Mg Tab.chew, 1 TAB PO DAILY, #30 Ref 3 (Reported) Entered as Reported by: WOLF JAIME on 10/21/141241 Last Action: Continued on 06/27/202225 by SHARIF FUNEZ MD Atorvastatin Calcium (Atorvastatin Calcium) 40 Mg Tablet, 40 MG PO QHS for HLD, #30 Prescribed by: RAJESH QUEVEDO MD on 06/29/20 1431 Colestipol Hcl (Colestipol Hcl) 1 Gm Tablet, 1 GM PO DAILY for diarrhea, (Reported) Entered as Reported by: ESTELITA DOMINIQUE on 06/28/20 1105 Last Taken: Unknown Dose on Unknown Date & Time Last Action: Reviewed on 06/28/20 1120 by ESTELITA DOMINIQUE Diphenhydramine Hcl (Diphenhydramine Hcl) 25 Mg Tablet, 1 TAB PO QHS for sleep aid for 30 Days, #30 Ref 0 (Reported) Entered as Reported by: ESTELITA DOMINIQUE on 06/28/20 110 Last Taken: Unknown Dose on Unknown Date & Time Last Action: Reviewed on 06/28/20 1120 by ESTELITA DOMINIQUE Metoprolol Tartrate (Metoprolol Tartrate) 50 Mg Tablet, 0.5 TAB PO BID, #60 Ref 5 (Reported) Entered as Reported by: WOLF JAIME on 10/21/141241 Last Action: Continued on 06/27/202225 by SHARIF FUNEZ MD Justicifation of Admission Dx: Justifications for Admission: Justification of Admission Dx: Yes RAJESH QUEVEDO MD Jun 29, 2020 14:35
[2020-06-29 15:00] VITALS: BP 143/53
--- NOTE | 2020-06-29 15:10 | CARD ---
MR#: [id number] Date of Study: 06/29/2020 Ordering Physician: CRISTINA ANDERSON, Referring Physician: CRISTINA ANDERSON, Tech: APPROVED REPORT EXAM Loop Recorder After appropriate informed consent the left chest was prepped and draped in usual sterile fashion. 2 0 mL of lidocaine was instilled in the left chest. A 0.5 inch incision was made with an 11 blade sca lpel, a bio monitor 3, Biotronik implantable loop recorder with serial #[id number] was implanted withou t any difficulty. The incision was then closed with 1 stitch with a 3-0 absorbable suture. The inci ariadne was then dressed with Steri-Strips and bandage. No acute complications are noted. The patient tolerated the procedure well. CONCLUSION 1. Successful implantation of a bio monitor 3 Biotronik loop recorder for syncope of unclear etiolog y Signed by : Partha Hernandez, Electronically Approved : 06/29/2020 15:10:14
== END 2020-06-29 18:30 | disposition home or self-care (01) | DRG 260 ==
LOC: ER 18:17 → 2 NORTH 19:01
PROVIDERS: ADMIT Internal Medicine; ATTEND Internal Medicine
PROC: 0JH602Z Insertion of Monitoring Device into Chest Subcutaneous Tissue and Fascia, Open Approach (ICD-10-PCS; principal; 2020-06-29)
DX: I21.4 Non-ST elevation (NSTEMI) myocardial infarction (principal); N17.0 Acute kidney failure with tubular necrosis; E46 Unspecified protein-calorie malnutrition; I47.1 Supraventricular tachycardia; E78.5 Hyperlipidemia, unspecified; E86.0 Dehydration; I10 Essential (primary) hypertension; I25.10 Atherosclerotic heart disease of native coronary artery without angina pectoris; K21.9 Gastro-esophageal reflux disease without esophagitis; S01.01XA Laceration without foreign body of scalp, initial encounter; Z79.82 Long term (current) use of aspirin; Z85.828 Personal history of other malignant neoplasm of skin; Z95.1 Presence of aortocoronary bypass graft; M19.90 Unspecified osteoarthritis, unspecified site; W18.39XA Other fall on same level, initial encounter; Y93.89 Activity, other specified; Y92.89 Other specified places as the place of occurrence of the external cause; Y99.8 Other external cause status; Z68.27 Body mass index [BMI] 27.0-27.9, adult; Z88.2 Allergy status to sulfonamides; Z20.822 Contact with and (suspected) exposure to COVID-19
CPT/HCPCS: 33285; 36415; 70450; 71045; 71250; 78452; 80048; 80053; 80061; 82550; 83735; 84443; 84484; 85025; 85610; 85730; 87426; 93005; 93017; 93306; 93880; 96365; 96375; 99285; A9500; C1764; J1644; J2270; J2785; J3490; J7030; U0003; G0378